=== PATIENT | male | born 1980 | race Caucasian/White ===

== ENCOUNTER → 2017-05-12 | Outpatient (CLI) | payer OTHER ==
[~2017-05-12] MED LIST: ACET325T96 PO; CODEINE COUGH SYRUP PO; LACTCHW3 PO; NYQUILL PO
== END | disposition home or self-care (01) ==
LOC: C.PATHSPEC 17:35
PROVIDERS: ATTEND Urology
DX: Z30.2 Encounter for sterilization (principal)

== ENCOUNTER → 2018-02-27 | Outpatient (CLI) | payer OTHER ==
[~2018-02-27] MED LIST changes: +ACET-1693 PO; -ACET325T96 PO
== END | disposition home or self-care (01) ==
LOC: C.RDSM 13:18
PROVIDERS: ATTEND Family Medicine Sports Medicine
DX: M79.621 Pain in right upper arm (principal)